=== PATIENT | female | born 1970 | race Caucasian/White ===

== ENCOUNTER 2018-12-20 08:21 | Day surgery (SDC) | payer OTHER, BC ==
[2018-12-20] MEDS: CEFAZOLIN 2 GM/50 ML (PMX) 50 ML IVPB (06:00)
[2018-12-20] MEDS: DEXAMETHASONE 2 MG TAB PO (10:31)
[2018-12-20] MEDS: LACTATED RINGER'S 1,000 ML IV (10:32)
[2018-12-20] MEDS ORDERED: PAIN COCKTAIL - VANCOMYCIN IRR (12:00)
[2018-12-20] MEDS ORDERED: MIDAZOLAM 1 MG/ML 2 ML INJ (12:05)
[2018-12-20] MEDS ORDERED: PROPOFOL 100 ML (12:56)
[2018-12-20] MEDS ORDERED: ONDANSETRON 4 MG INJ (12:57)
[2018-12-20] MEDS ORDERED: LIDOCAINE 2% (SDV) 5 ML INJ (12:57)
[2018-12-20] MEDS ORDERED: DEXAMETHASONE 4 MG/ML 5 ML INJ (12:57)
[2018-12-20] MEDS ORDERED: FENTAnyl 50 MCG/ML VIAL (13:11)
[2018-12-20] MEDS: FENTAnyl 50 MCG/ML VIAL IV ×2 (13:18→13:31)
[2018-12-20] MEDS ORDERED: LABETALOL HCL 20MG INJ IV (13:30)
[2018-12-20] MEDS ORDERED: OXYCODONE/ACETAMINOPHEN (5/325) TAB PO (13:30)
[2018-12-20] MEDS ORDERED: hydrALAzine 20 MG INJ IV (13:30)
[2018-12-20] MEDS ORDERED: DIPHENHYDRAMINE 50 MG INJ IV (13:30)
[2018-12-20] MEDS ORDERED: KETOROLAC 30 MG INJ IV (13:30)
[2018-12-20] MEDS ORDERED: ALBUTEROL 0.083% (NEB) 2.5 MG/3 ML AMP HHN (13:30)
[2018-12-20] MEDS ORDERED: ONDANSETRON 4 MG INJ IV (13:30)
[2018-12-20] MEDS ORDERED: EPHEDrine 25 MG/5 ML SYG IV (13:30)
[2018-12-20] MEDS ORDERED: MIDAZOLAM 1 MG/ML 2 ML INJ IV (13:30)
[2018-12-20] MEDS ORDERED: METOCLOPRAMIDE 10 MG INJ IV (13:30)
[2018-12-20] MEDS ORDERED: FENTAnyl 50 MCG/ML VIAL IV ×2 (13:30)
[2018-12-20] MEDS: OXYCODONE/ACETAMINOPHEN (5/325) TAB PO (14:26)
== END 2018-12-20 15:00 | disposition home or self-care (01) ==
LOC: SDS 08:21
DX: M76.11 Psoas tendinitis, right hip (principal); G89.29 Other chronic pain
CPT/HCPCS: 29999; 73501; 73530